=== PATIENT | female | born 1975 | race Caucasian/White ===

== ENCOUNTER 2016-07-20 10:32 | Outpatient (CLI) | payer OTHER ==
--- NOTE | 2016-07-21 16:43 | Mammography Report ---
DIGITAL BILATERAL MAMMOGRAM: 07/20/2016 HISTORY: A 41-year-old asymptomatic nulliparous female, family history of breast cancer. TECHNIQUE: Bilateral CC, MLO views. FINDINGS: Heterogeneously dense tissue is present. This pattern does limit mammographic sensitivity . RIGHT BREAST: No suspicious calcifications, distortion or mass lesions. LEFT BREAST: Faint grouped calcifications in the upper outer anterior position. The remainder of th e parenchymal pattern is stable. Recommend targeted magnification views. IMPRESSION: 1. RIGHT BREAST: NO SUSPICIOUS FINDINGS (BI-RADS CATEGORY 1, NEGATIVE). 2. LEFT BREAST: POSSIBLE INCREASING CALCIFICATIONS IN THE ANTERIOR UPPER OUTER POSITION. RECOMMEND TARGETED MAGNIFICATION VIEWS. THE FINAL IMPRESSION IS PENDING AT THIS TIME (BI-RADS CATEGORY 0, INC OMPLETE). STANDARD QUALIFYING STATEMENTS 1. This examination was reviewed with the aid of Computer-Aided Detection (CAD). 2. A negative or benign imaging report should not delay biopsy if clinically suspicious findings are present. Consider surgical consultation if warranted. More than 5% of cancers are not identified by i maging. 3. Dense breasts may obscure an underlying neoplasm. JOB #: [id number] EXT JOB #:[id number]
== END 2016-07-20 10:33 | disposition home or self-care (01) ==
LOC: DI 10:32
PROVIDERS: ATTEND Family Medicine
DX: Z12.31 Encounter for screening mammogram for malignant neoplasm of breast (principal); R92.1 Mammographic calcification found on diagnostic imaging of breast; Z80.3 Family history of malignant neoplasm of breast
CPT/HCPCS: 77067

== ENCOUNTER 2016-07-20 10:33 | Outpatient (CLI) | payer OTHER ==
--- NOTE | 2016-07-20 16:30 | MRI Report ---
EXAM: LEFT KNEE MRI WITHOUT CONTRAST EXAM DATE: 07/20/2016 11:42 AM. CLINICAL HISTORY: Running injury 2 months ago. Left knee pain posteriorly COMPARISON: None. TECHNIQUE: Multiplanar, multisequence T1-weighted and fluid-sensitive sequences of the knee without c ontrast. Other: None. FINDINGS: Bones: No fractures. There is periarticular reactive marrow edema at the lateral portion of the interiano lofemoral joint space. Articular Cartilage: Severe cartilage loss is in the lateral patellofemoral joint space. The tibiofem oral articular cartilage is intact. Medial Meniscus: The medial meniscus is intact. Lateral Meniscus: The lateral meniscus is intact. Cruciate Ligaments: The anterior and posterior cruciate ligaments are intact. Collateral Ligaments: The medial collateral and lateral collateral ligamentous structures are intact. Tendons: The quadriceps, patellar, semimembranosus, and popliteus tendons are unremarkable. Musculature: No edema or fatty atrophy. Other: A mild effusion is present. No popliteal cyst. No loose bodies. The medial and lateral retina cula are intact. Prepatellar subcutaneous edema is seen. IMPRESSION: 1. 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 2. Mild knee effusion. [facility] MUSCULOSKELETAL RADIOLOGY SECTION Referring Provider Line: [phone] SITE ID: [id number]
== END 2016-07-20 10:34 | disposition home or self-care (01) ==
LOC: DI 10:33
PROVIDERS: ATTEND Family Medicine
DX: M22.42 Chondromalacia patellae, left knee (principal); M25.462 Effusion, left knee

== ENCOUNTER 2016-07-22 14:35 | Outpatient (CLI) | payer OTHER | END 2016-07-22 14:36 | disposition home or self-care (01) | DX: R22.2 Localized swelling, mass and lump, trunk (principal) ==

== ENCOUNTER 2016-07-29 16:21 | Outpatient (CLI) | payer OTHER | END 2016-07-29 16:22 | disposition home or self-care (01) | DX: M25.512 Pain in left shoulder (principal); M25.812 Other specified joint disorders, left shoulder; M19.012 Primary osteoarthritis, left shoulder ==

== ENCOUNTER 2016-08-04 12:22 | Outpatient (CLI) | payer OTHER | END 2016-08-04 12:23 | disposition home or self-care (01) | DX: R92.1 Mammographic calcification found on diagnostic imaging of breast (principal) ==

== ENCOUNTER 2017-02-16 14:02 | Outpatient (CLI) | payer OTHER ==
[2017-02-16 15:54] LABS: THYROID STIMULATING HORMONE 2.48 uIU/mL (0.34-5.60)
--- NOTE | 2017-02-16 16:01 | Mammography Report ---
DIGITAL DIAGNOSTIC LEFT MAMMOGRAM: 02/16/2017 CLINICAL INDICATION: Followup calcifications. TECHNIQUE: Left CC, MLO, true lateral, laterally exaggerated craniocaudal, spot magnification views. COMPARISON: 08/04/2016, 07/20/2016, 07/23/2015. FINDINGS: The left breast demonstrates heterogeneously dense fibroglandular parenchyma. The calcific ations in question, in the left slightly upper central anterior breast, remain punctate on spot magni fication views. No developing pleomorphism is seen. IMPRESSION: PROBABLE BENIGN PUNCTATE CALCIFICATIONS. RECOMMENDATION: DIAGNOSTIC BILATERAL MAMMOGRAM IN SIX MONTHS, TO ENSURE STABILITY. BIRADS CATEGORY 3-PROBABLE BENIGN FINDINGS. STANDARD QUALIFYING STATEMENTS 1. This examination was reviewed with the aid of Computer-Aided Detection (CAD). 2. A negative or benign imaging report should not delay biopsy if clinically suspicious findings are present. Consider surgical consultation if warranted. More than 5% of cancers are not identified by i maging. 3. Dense breasts may obscure an underlying neoplasm. JOB #: [id number] EXT JOB #:[id number]
== END 2017-02-16 14:03 | disposition home or self-care (01) ==
LOC: DI 14:02
PROVIDERS: ATTEND Family Medicine
DX: R92.1 Mammographic calcification found on diagnostic imaging of breast (principal); R94.6 Abnormal results of thyroid function studies
CPT/HCPCS: 36415; 84439; 84443; 84481

== ENCOUNTER 2017-09-29 08:53 | Outpatient (CLI) | payer OTHER ==
--- NOTE | 2017-09-29 13:34 | Mammography Report ---
DIAGNOSTIC BILATERAL MAMMOGRAM: 09/29/2017 CLINICAL INDICATION: Followup calcifications. COMPARISON: 02/16/2017, 08/04/2016 07/20/2016, 07/23/2015. TECHNIQUE: Bilateral CC and MLO views, bilateral laterally exaggerated craniocaudal views, left true lateral and spot magnification views. FINDINGS: The breasts again demonstrate heterogeneously dense fibroglandular parenchyma bilaterally. The calcifications in question, in the left upper central anterior breast, remain punctate on spot magnification views. No developing pleomorphism is seen. No suspicious mass or architectural distortion is appreciated. IMPRESSION: PROBABLE BENIGN PUNCTATE CALCIFICATIONS IN THE LEFT UPPER CENTRAL BREAST. RECOMMENDATION: Diagnostic left mammogram in 6 months. BI-RADS CATEGORY 3 - PROBABLE BENIGN FINDINGS. STANDARD QUALIFYING STATEMENTS: 1. This examination was reviewed with the aid of Computer-Aided Detection (CAD). 2. A negative or benign imaging report should not delay biopsy if clinically suspicious findings are present. Consider surgical consultation if warranted. More than 5% of cancers are not identified by imaging. 3. Dense breasts may obscure an underlying neoplasm. TD: 09/29/2017 13:23
== END 2017-09-29 08:54 | disposition home or self-care (01) ==
LOC: DI 08:53
PROVIDERS: ATTEND Family Medicine
DX: R92.8 Other abnormal and inconclusive findings on diagnostic imaging of breast (principal)
CPT/HCPCS: 77066

== ENCOUNTER 2018-09-18 08:54 | Outpatient (CLI) | payer OTHER ==
--- NOTE | 2018-09-18 09:52 | Mammography Report ---
Reason: CALCIFICATION Procedure Date: 09/18/2018 Accession Number: [id number] / [id number] Procedure: [facility] - Diagnostic Dig Bilat CPT Code: FULL RESULT: EXAM: Diagnostic Dig Bilat DATE: 09/18/2018 9:43 AM CLINICAL HISTORY: Left breast diagnostic mammography for surveillance of calcifications 12:00 breast. Routine screening right breast mammogram. Family history breast cancer maternal aunt age 80. No reported personal history of breast cancer. TECHNIQUE: (B) - Bilateral CC and MLO views were obtained. Additional coned magnified left CC and MLO views are obtained. 90 degree lateral left breast. COMPARISON: 09/29/2017 through 07/23/2015 PARENCHYMAL PATTERN: (D) - The breasts demonstrate heterogeneously dense fibroglandular parenchyma bilaterally. FINDINGS: Left breast: There is a stable 2 mm grouping of mixed punctate and amorphous calcium in the 12:00 breast 17 mm from the nipple. There are no suspicious masses or areas of distortion. These calcifications have been unchanged by diagnostic imaging dating back to 02/16/2017. Right breast: There are no suspicious masses, calcifications, or areas of distortion. IMPRESSION: Left breast: Stable 2 mm grouping of mixed punctate and amorphous calcium. Probably benign. BI-RADS Category 3. Recommend surveillance diagnostic mammogram in one year to ensure expected continued stability. This exam will coincide with contralateral screening. Right breast: Negative. BI-RADS Category 1 recommend annual screening mammography. RECOMMENDATION: (12MOS) - Recommend 12 month follow-up exam. BI-RADS CATEGORY: (3) - Probably Benign. STANDARD QUALIFYING STATEMENTS: 1. This examination was not reviewed with the aid of Computer-Aided Detection (CAD). 2. A negative or benign imaging report should not preclude biopsy if clinically suspicious findings are present. 3. Dense breasts may obscure an underlying neoplasm. 4. This examination was reviewed with the aid of 3D breast imaging (tomosynthesis).
== END 2018-09-18 08:55 | disposition home or self-care (01) ==
LOC: DI 08:54
PROVIDERS: ATTEND Physician Assistant
DX: R92.1 Mammographic calcification found on diagnostic imaging of breast (principal); Z80.3 Family history of malignant neoplasm of breast
CPT/HCPCS: 77066

== ENCOUNTER 2019-08-08 13:41 | Outpatient (CLI) | payer OTHER | END 2019-08-08 13:42 | disposition home or self-care (01) | LOC: COV 13:41 | PROVIDERS: ATTEND Family Medicine | DX: R50.9 Fever, unspecified (principal) | CPT/HCPCS: 81599 ==